=== PATIENT | male | born 2000 | race Caucasian/White ===

== ENCOUNTER → 2023-11-30 13:25 | Outpatient (REF) | payer OTHER, SELFPAY | LOC: HWRAD 13:25 | PROVIDERS: ATTENDING PHYSICIAN Physician Assistant Medical | DX: M25.561 Pain in right knee (principal); G89.29 Other chronic pain | CPT/HCPCS: 73564 ==

== ENCOUNTER → 2023-12-30 06:35 | Outpatient (REF) | payer OTHER, SELFPAY | LOC: MRI 06:35 | PROVIDERS: ATTENDING PHYSICIAN Specialist; FAMILY PHYSICIAN Physician Assistant Medical | DX: M25.561 Pain in right knee (principal) | CPT/HCPCS: 73721 ==